=== PATIENT | male | born 1995 | race Caucasian/White ===

== ENCOUNTER 2020-09-14 17:28 | Emergency (ER) | payer OTHER, SELFPAY ==
--- NOTE | 2020-09-14 17:43 | ED.WOUNDLAC ---
HPI - Wound/Laceration General Chief Complaint: Wound/Laceration Stated Complaint: Laceration on thumb Time Seen by Provider: 09/14/20 17:43 Source: patient and RN notes reviewed Mode of arrival: ambulatory Limitations: no limitations History of Present Illness HPI narrative: 25 yo male presents to the [facility] with a right thumb skin tear/flap. States that his tDap is UTD within the last year. Related Data Home Medications Medication Instructions Recorded Confirmed No Home Medications 09/14/20 09/14/20 Allergies Allergy/AdvReac Type Severity Reaction Status Date / Time No Known Allergies Allergy Verified 09/14/20 17:51 Review of Systems Review of Systems: All systems reviewed & are unremarkable except as noted in HPI and below Constitutional: Constitutional: Reports no additional constitutional complaints Eyes: Eyes: Reports no additional eye complaints ENT: Reports system reviewed and no additional complaints, except as documented Cardiovascular: Cardiovascular: Reports no additional cardiovascular complaints Respiratory: Respiratory: Reports no additional respiratory complaints Musculoskeletal: Musculoskeletal: Reports no additional musculoskeletal complaints Integumentary/Breasts: Skin/Breast: Reports as per HPI Comments: Right thumb skin flap Neurologic: Reports system reviewed and no additional complaints, except as documented Psychiatric: Psychiatric: Reports no additional psychiatric complaints Allergic/Immunologic: Allergic/Immunologic: Reports no additional allergic/immunologic complaints PMFSH Past Medical History Medical History (Updated 09/15/20 @ 18:15 by Kendra Oglesby) No significant medical problems Surgical History Surgical History (Updated 09/15/20 @ 18:15 by Kendra Oglesby) No significant past surgical history Comments At the time of my signature, I reviewed and agree with the nursing past medical, surgical, social, and family history. There is no relevant family history pertinent to the patient complaint. Exam Const: General: healthy appearing, no acute distress and alert Nutritional Appearance: well nourished Orientation/consciousness: patient oriented x3 Limitations: no limitations HENMT: Head: normal to inspection Chest: Chest palpation & inspection: normal inspection of the chest Resp: Effort & Inspection: normal respiratory effort Auscultation: clear to auscultation bilaterally Cardio: Rate: regular rate Rhythm: regular rhythm Skin: Wounds: wounds noted flap right thumb size (0.5 cm); no drainage, odorous and without any surrounding erythema Neuro: General: patient oriented x3, moves all extremities, no meningeal signs and no focal motor deficits Speech: normal speech Gait exam (Neuro): Normal gait present Extrem: General: normal to inspection Psych: Appearance: grossly normal and well kempt Mental Status: mental status grossly normal Affect: normal affect Attitude: cooperative Thought content: Yes Normal thought content present Course Course Emergency Course: Discharge instructions reviewed with patient, as well as provided in writing per nursing staff. The instructions also include specific and strict return/GO TO THE ER as well as f/u information. All questions have been answered, and the patient deny any further questions with discharge and discharge plan. Vital Signs Vital signs: Vital Signs Temperature 97.9 F 09/14/20 17:46 Pulse Rate 70 09/14/20 17:46 Respiratory Rate 16 09/14/20 17:46 Blood Pressure 127/80 09/14/20 17:46 Pulse Oximetry 100 09/14/20 17:46 Temperature 97.9 F 09/14/20 17:46 Pulse Rate 70 09/14/20 17:46 Respiratory Rate 16 09/14/20 17:46 Blood Pressure 127/80 09/14/20 17:46 Pulse Oximetry 100 09/14/20 17:46 Reviewed Procedures Laceration Laceration 1: Date: 09/14/20 Time: 18:11 Site: hand (right thumb) Side (If applicable): right Size
[2020-09-14 17:46] VITALS: BP 127/80; PULSE 70; RESP 16; TEMP 36.6; O2SAT 100
== END 2020-09-14 18:16 | disposition home or self-care (01) ==
PROVIDERS: Emergency Provider Nurse Practitioner
DX: S61.011A Laceration without foreign body of right thumb without damage to nail, initial encounter (principal); X58.XXXA Exposure to other specified factors, initial encounter
CPT/HCPCS: 12001; 99202; G0463

== ENCOUNTER 2021-05-04 10:29 | Emergency (ER) | payer OTHER, SELFPAY ==
[2021-05-04 10:41] VITALS: BP 125/72; PULSE 82; RESP 16; TEMP 35.6; O2SAT 98
--- NOTE | 2021-05-04 10:41 | ED.EYEPROB ---
HPI - Eye Problem General Chief complaint: Eye Problems Stated complaint: Soil in eye Time Seen by Provider: 05/04/21 10:43 Source: patient, RN notes reviewed and old records reviewed Mode of arrival: ambulatory Limitations: no limitations History of Present Illness HPI Narrative: 26-year-old male presents to the [facility] with complaints of getting dirt, soil in his right eye about 930 this morning. Used his eyewash station and states it does feel better but wanted to come get checked. No blurry vision or change in vision. States it feels like there is something still in there. chief complaint: eye pain and eye redness Related Data Allergies Allergy/AdvReac Type Severity Reaction Status Date / Time No Known Allergies Allergy Verified 05/04/21 10:55 Review of Systems Review of Systems: All systems reviewed & are unremarkable except as noted in HPI and below Constitutional: Constitutional: Reports no additional constitutional complaints, Denies chills and Denies fever(s) Eyes: Eyes: Reports as per HPI, Denies blurry vision, Denies change in vision, Denies eye discharge, Denies dry eyes, Denies floaters, Reports irritation, Reports itchy eyes, Denies loss of vision, Denies eye pain, Denies requires corrective lenses and Reports other (Feels like something is in his eye) ENT: Reports system reviewed and no additional complaints, except as documented and Denies sore throat Cardiovascular: Cardiovascular: Reports no additional cardiovascular complaints and Denies chest pain Respiratory: Respiratory: Reports no additional respiratory complaints, Denies cough and Denies dyspnea Gastrointestinal: Gastrointestinal: Reports no additional gastrointestinal complaints and Denies abdominal pain Musculoskeletal: Musculoskeletal: Reports no additional musculoskeletal complaints Integumentary/Breasts: Skin/Breast: Reports system reviewed and no additional complaints, except as docu Neurologic: Reports system reviewed and no additional complaints, except as documented Psychiatric: Psychiatric: Reports no additional psychiatric complaints Allergic/Immunologic: Allergic/Immunologic: Reports no additional allergic/immunologic complaints PMFSH Past Medical History Medical History (Updated 05/04/21 @ 11:09 by Kendra Oglesby APRN) No significant medical problems Surgical History Surgical History (Updated 09/15/20 @ 18:15 by Kendra Oglesby APRN) No significant past surgical history Comments At the time of my signature, I reviewed and agree with the nursing past medical, surgical, social, and family history. There is no relevant family history pertinent to the patient complaint. Exam Const: General: healthy appearing, no acute distress and alert Nutritional Appearance: well nourished Orientation/consciousness: patient oriented x3 Limitations: no limitations HENMT: Head: normal to inspection Ears: external ears normal, TM's normal bilaterally and EAC's normal General nose exam: Normal nares present and Normal nasal mucous membranes and turbinates present Face and sinus: normal facial exam Throat: posterior oropharynx normal Eyes: General: appearance normal, both eyes and all related structures Visual Sanchez: normal visual sanchez by confrontation Alignment and Position: alignment normal Periorbital: periorbital findings normal Eyelids: eyelids normal Conjunctivae: conjunctivae normal Sclera: sclerae normal Cornea: corneas normal and fluorescein used Pupils: Equal, round and reactive pupils present EOM: EOMs intact bilaterally Direct Ophthalmoscopy: no photophobia Other: No hyphema, no foreign body, no signs of infection. Neck: Neck: normal visual inspection, no lymphadenopathy and no meningeal signs Chest: Chest palpation & inspection: normal inspection of the chest Resp: Effort & Inspection: normal respiratory effort and no use of accessory muscles Auscultation: clear to auscultation bilaterally, no crackles,
== END 2021-05-04 11:11 | disposition home or self-care (01) ==
PROVIDERS: Emergency Provider Nurse Practitioner
DX: T15.91XA Foreign body on external eye, part unspecified, right eye, initial encounter (principal); X58.XXXA Exposure to other specified factors, initial encounter
CPT/HCPCS: 99213; A9270; G0463

== ENCOUNTER 2021-08-19 16:22 | Emergency (ER) | payer OTHER, SELFPAY ==
--- NOTE | ~2021-08-19 | XR_ITS ---
XR forearm LT 2V, XR elbow LT min 3V 08/19/2021 17:01 (accession [id number]), 08/19/2021 17:02 (accession [id number]) INDICATION: Left arm and elbow pain after fall PROCEDURE: 4 views left elbow and 2 views left forearm COMPARISON: No prior studies for comparison. FINDINGS: Fracture, dislocation or subluxation is not identified. No significant joint effusion. The soft tissues appear within normal limits. No foreign bodies are identified. IMPRESSION: 1: NO ACUTE BONE OR JOINT ABNORMALITY IDENTIFIED. Reviewed, dictated and finalized at location A. IMPRESSION: 1: NO ACUTE BONE OR JOINT ABNORMALITY IDENTIFIED.
[2021-08-19 16:30] VITALS: BP 128/73; PULSE 74; RESP 18; TEMP 36.9; O2SAT 100
--- NOTE | 2021-08-19 17:24 | ED.UPPEXIN ---
HPI - Extremity Injury (Upper) General Chief Complaint: Extremity Injury, Upper Stated Complaint: fall-arm pain Time Seen by Provider: 08/19/21 16:55 History of Present Illness HPI narrative: 26-year-old male presents emergency room complaints of left forearm and left elbow pain. Patient states he was at work when the scaffolding fell onto his left arm pinning him to the floor. Reports the pain worse with. States he is able to move his elbow and wrist joints without any problems. Ibuprofen prior to arrival which seemed to lessen his pain. Related Data Home Medications Medication Instructions Recorded Confirmed No Home Medications 08/19/21 08/19/21 Allergies Allergy/AdvReac Type Severity Reaction Status Date / Time No Known Allergies Allergy Verified 08/19/21 17:18 Review of Systems Review of Systems: CONSTITUTIONAL: Denies fever, chills, or sweats. EYES: Denies visual changes, redness, or discharge. ENT: Denies rhinorrhea, congestion, sore throat, or otalgia. CARDIOVASCULAR: Denies chest pain, palpitations, or edema. RESPIRATORY: Denies cough or dyspnea. GASTROINTESTINAL: Denies abdominal pain, nausea, vomiting, or diarrhea. GENITOURINARY: Denies dysuria or hematuria. SKIN: Denies rash or itching. MUSCULOSKELETAL: Reports left arm pain NEUROLOGIC: Denies headache, numbness, dizziness, or weakness. PSYCHIATRIC: Denies anxiety or depression. PMFSH Past Medical History Medical History No significant medical problems Surgical History Surgical History No significant past surgical history Exam Narrative: GENERAL: Well-appearing, well-nourished, no physical limitations, and in no acute distress. HEAD: Normocephalic, atraumatic. EYES: Conjunctivae normal, PERRLA and EOMI. CHEST: Clear to auscultation. No respiratory distress. No wheezes rales or rhonchi. No tenderness. HEART: Regular rate and rhythm. No murmur heard. Normal peripheral pulses. EXTREMITIES: Left arm: Tenderness over the anterior proximal forearm, with an overlying superficial abrasion. Tenderness over the proximal radius with soft tissue swelling and ecchymosis. Full range of motion of his elbow and radiocarpal joints. No obvious bony abnormality. Neurovascular is intact distally SKIN: Warm, dry, no rash. No noted wounds NEURO: No focal deficits. Alert and oriented x3. MAEW. CN's II-XI intact bilaterally, normal gait PSYCH: Cooperative. Normal mood and affect. Course Vital Signs Vital signs: Vital Signs Temperature 36.9 C 08/19/21 16:30 Pulse Rate 74 08/19/21 16:30 Respiratory Rate 18 08/19/21 16:30 Blood Pressure 128/73 08/19/21 16:30 Pulse Oximetry 100 08/19/21 16:30 Oxygen Delivery Room Air 08/19/21 16:30 Temperature 36.9 C 08/19/21 16:30 Pulse Rate 74 08/19/21 16:30 Respiratory Rate 18 08/19/21 16:30 Blood Pressure 128/73 08/19/21 16:30 Pulse Oximetry 100 08/19/21 16:30 Oxygen Delivery Room Air 08/19/21 16:30 Discharge Plan Discharge Clinical Impression: Contusion of arm, left Patient Disposition: Home, Self-Care Condition: Stable Instructions: Antibiotic Form, Contusion in Adults (ED) Additional Instructions: He may have a standing injury for 15 minutes at a time for the first 48 hours following the injury. Continue taking ibuprofen as needed for pain. Prescriptions: No Action No Home Medications Follow-up/Referrals: PHYSICIAN NOT ON STAFF,NONSTAFF [Primary Care Provider] - Time of Disposition: 17:27
== END 2021-08-19 18:10 | disposition home or self-care (01) ==
LOC: ANHED 17:30
PROVIDERS: Emergency Provider Nurse Practitioner Family
DX: S50.12XA Contusion of left forearm, initial encounter (principal); W20.8XXA Other cause of strike by thrown, projected or falling object, initial encounter
CPT/HCPCS: 73080; 73090; 99283